=== PATIENT | female | born 1960 | race Caucasian/White ===

== ENCOUNTER 2021-02-22 15:59 | Observation (INO) | payer OTHER ==
[~2021-02-22] VITALS: Ht 165.1 cm; Wt 90.5 kg
[2021-02-22 16:01] VITALS: Ht 165.1 cm; Wt 90.5 kg
[2021-02-22] MEDS ORDERED: LISINOPRIL10 MG PO (16:21)
[2021-02-22] MEDS ORDERED: SYNTHROID25 MCG PO (16:21)
[2021-02-22] MEDS ORDERED: METOPROLOL TART25 MG PO (16:21)
[2021-02-22] MEDS ORDERED: HUMALOG 30100 UNITS/ (16:22)
[2021-02-22] MEDS ORDERED: BASAGLAR K100 UNIT/1 (16:22)
[2021-02-22] MEDS ORDERED: EFFEXOR XR75 MG PO (16:24)
[2021-02-22] MEDS ORDERED: HYDROCHLOROTHIA50 MG PO (16:24)
[2021-02-22] MEDS ORDERED: GEMFIBROZIL600 MG PO (16:25)
[2021-02-22] MEDS ORDERED: DETROL2 MG PO (16:25)
[2021-02-22] MEDS ORDERED: CRESTOR10 MG PO (16:25)
[2021-02-22] MEDS ORDERED: BAYER CHEWABLE81 MG PO (16:26)
[2021-02-22] MEDS ORDERED: MELATONIN 3 MG1 TAB PO (16:26)
[2021-02-22] MEDS ORDERED: PROVENTIL/2.5 MG/3 M INH (16:26)
[2021-02-22] MEDS ORDERED: LOPRESSOR I5 MG/5 ML (16:27)
[2021-02-22] MEDS ORDERED: POTASSIUM CHLOR8 ME1 PO (16:27)
[2021-02-22 16:29] VITALS: BP 217/99
[2021-02-22 17:28] LABS: BASOPHILS 0.9 % (0-2); EOSINOPHILS 4.2 % (0-7); HEMATOCRIT 42.8 % (36.0-48.0); HEMOGLOBIN 14.2 g/dL (12-16); LYMPHOCYTES 25.3 % (15-50); MCH 28.9 pg (26.0-34.0); MCHC 33.2 g/dL (31.0-37.0); MEAN PLATELET VOLUME 7.5 fL (7.4-10.4); MONOCYTES 7.4 % (2-11); NEUTROPHILS 62.2 % (40-80); PLATELET COUNT 368 10x3/uL (130-400); RBC 4.92 10x6/uL (4.00-5.40); RDW 13.7 % (11.5-14.5); WBC 9.9 10x3/uL (4.8-10.8)
[2021-02-22 17:38] LABS: CALC OSMOLALITY 277 mosm/kg (275-300); CALCIUM 9.1 mg/dL (8.5-10.1); CHLORIDE - SERUM 102 mmol/L (98-107); CREATININE - SERUM 0.7 mg/dL (0.6-1.3); GLUCOSE 87 mg/dL (74-106); POTASSIUM - SERUM 3.6 mmol/L (3.5-5.1); SODIUM 140 mmol/L (136-145); UREA NITROGEN 13 mg/dL (7-18); eGFR NON AFRICAN AMERICAN 90 mL/min (90-120)
[2021-02-22 17:52] LABS: ALBUMIN 3.1 g/dL (3.4-5.0); ALKALINE PHOSPHATASE 50 U/L (30-120); ALT (SGPT) 39 U/L (10-68); BILIRUBIN - TOTAL 0.52 mg/dL (0.2-1.3); CKMB 0.5 U/L (0.0-3.6); CREATINE KINASE 40 UL (21-215); MAGNESIUM - SERUM 1.6 mg/dL (1.8-2.4); PROTEIN - SERUM 7.1 g/dL (6.4-8.2)
[2021-02-22 17:55] LABS: TROPONIN-I < 0.017 ng/mL (0.000-0.060)
[2021-02-23 00:34] VITALS: BP 145/46
--- NOTE | 2021-02-23 00:38 | NUR ---
poc glucose 126
[2021-02-23 01:00] VITALS: BP 164/66
[2021-02-23 01:20] LABS: CKMB 0.7 U/L (0.0-3.6); CREATINE KINASE 36 UL (21-215)
[2021-02-23 01:28] LABS: TROPONIN-I < 0.017 ng/mL (0.000-0.060)
[2021-02-23 02:00] VITALS: BP 170/68
--- NOTE | 2021-02-23 05:56 | NUR ---
AMBULATED TO AND FROM RESTROOM WITH STEADY GAIT. STATES SHE VOIDED URINE.
[2021-02-23 07:19] LABS: CKMB 0.1 U/L (0.0-3.6); CREATINE KINASE 33 UL (21-215); TROPONIN-I < 0.017 ng/mL (0.000-0.060)
[2021-02-23 07:36] LABS: ERYTHROCYTE SEDIMENTATION RATE 43 mm/hr (0-30)
--- NOTE | 2021-02-23 08:30 | NUR ---
PT TO NUCLEAR MED SCAN WITH TECH VIA WHEELCHAIR.
[2021-02-23 13:35] LABS: CKMB 0.7 U/L (0.0-3.6); CREATINE KINASE 35 UL (21-215); TROPONIN-I < 0.017 ng/mL (0.000-0.060)
[2021-02-23 17:08] LABS: ALBUMIN 3.2 g/dL (3.4-5.0); ALKALINE PHOSPHATASE 68 U/L (30-120); ALT (SGPT) 38 U/L (10-68); BILIRUBIN - TOTAL 0.35 mg/dL (0.2-1.3); C-REACTIVE PROTEIN 3.1 mg/dL (0.0-0.9); CALCIUM 9.2 mg/dL (8.5-10.1); CARBON DIOXIDE 32.1 mmol/L (21.0-32.0); CHLORIDE - SERUM 99 mmol/L (98-107); CREATININE - SERUM 0.7 mg/dL (0.6-1.3); MAGNESIUM - SERUM 1.7 mg/dL (1.8-2.4); PHOSPHOROUS 4.8 mg/dL (2.5-4.9); PROTEIN - SERUM 7.7 g/dL (6.4-8.2); SODIUM 140 mmol/L (136-145); UREA NITROGEN 11 mg/dL (7-18); eGFR NON AFRICAN AMERICAN 90 mL/min (90-120)
[2021-02-23 17:09] LABS: CALC OSMOLALITY 281 mosm/kg (275-300); GLUCOSE 165 mg/dL (74-106); POTASSIUM - SERUM 4.2 mmol/L (3.5-5.1)
== END 2021-02-23 16:00 | disposition home or self-care (01) ==
LOC: D.ER 15:59 → D.EDHOLD 18:42 → OBSVTIME 18:42 → D.EDHOLD 18:42
PROVIDERS: Family Medicine; ADMIT Emergency Medicine; ATTEND Emergency Medicine
DX: M79.602 Pain in left arm (principal); I10 Essential (primary) hypertension; E78.5 Hyperlipidemia, unspecified; E11.9 Type 2 diabetes mellitus without complications; E03.9 Hypothyroidism, unspecified; M19.90 Unspecified osteoarthritis, unspecified site; Z79.4 Long term (current) use of insulin; T50.B95A Adverse effect of other viral vaccines, initial encounter; F31.9 Bipolar disorder, unspecified; I25.119 Atherosclerotic heart disease of native coronary artery with unspecified angina pectoris